=== PATIENT | male | born 1970 | race Caucasian/White ===

== ENCOUNTER 2018-01-01 01:04 | Emergency (ER) | payer SELFPAY ==
[~2018-01-01] VITALS: Ht 165.1 cm; Wt 68.0 kg
--- NOTE | 2018-01-01 01:25 | NUR ---
TO ROOM 4A FOR ER EVAL.PT STATES ALSO STARTED WITH HICCUPS
[2018-01-01] MEDS ORDERED: ONDANSETRON 4 MG/2 ML VIAL ONE ×2 (01:26→03:01)
[2018-01-01] MEDS ORDERED: ONDANSETRON 4 MG/2 ML VIAL IV ONE ×2 (01:45→03:15)
[2018-01-01] MEDS ORDERED: PANTOPRAZOLE SODIUM 40 MG VIAL IV ONE (01:45)
[2018-01-01] MEDS ORDERED: IV NORMAL SALINE 1000 ML BAG IV ONE ×3 (01:45→02:45)
[2018-01-01] MEDS ORDERED: PANTOPRAZOLE SODIUM 40 MG VIAL ONE (01:45)
[2018-01-01 01:56] LABS: BASOPHILS % (AUTO) 0.1 % (0.0-2.0); EOSINOPHILS % (AUTO) 0.1 % (0.0-7.0); HEMOGLOBIN 15.8 g/dL (12.5-16.3); LYMPHOCYTES # (AUTO) 1.5 K/uL (20.0-40.0); LYMPHOCYTES % (AUTO) 16.7 % (20.5-51.5); MEAN CORPUSCULAR HEMOGLOBIN 27.8 uug (23.8-33.4); MEAN CORPUSCULAR HGB CONC 34 g/dL (32.5-36.3); MEAN CORPUSCULAR VOLUME 81.1 fL (73.0-96.2); MONOCYTES # (AUTO) 0.5 K/uL (2.0-10.0); MONOCYTES % (AUTO) 5.7 % (0.0-11.0); NEUTROPHILS # (AUTO) 7.1 K/uL (1.8-8.9); NEUTROPHILS % (AUTO) 77.4 % (38.5-71.5); PLATELET COUNT (AUTO) 283 K/uL (152-348); RED BLOOD CELL COUNT(AUTO) 5.67 MIL/uL (4.06-5.63); WHITE BLOOD COUNT (AUTO) 9.2 K/uL (3.6-10.2)
[2018-01-01 02:12] LABS: BILIRUBIN,DIRECT 0.1 mg/dL (0.0-0.2); BILIRUBIN,TOTAL 0.4 mg/dL (0.2-1.0); POTASSIUM 3.8 mmol/L (3.5-5.1); TOTAL PROTEIN, SERUM 9.1 g/dL (6.4-8.2)
[2018-01-01 03:25] LABS: *BILIRUBIN,URIN NEGATIVE (NEGATIVE); *BLOOD, URINE NEGATIVE (NEGATIVE); *CLARITY,URINE CLEAR (CLEAR); *COLOR,URINE YELLOW (YELLOW); *KETONES,URINE NEGATIVE (NEGATIVE); *PROTEIN,URINE NEGATIVE (NEGATIVE); LEUKOCYTE ESTERASE ,URINE NEGATIVE (NEGATIVE); NITRITE, URINE NEGATIVE (NEGATIVE); UGLUCOSE NEGATIVE (NEGATIVE)
[2018-01-01 03:39] LABS: RBC,URINE 0-3 /HPF (0-3); SQUAMOUS EPITHELIAL CELL,UR FEW /HPF (NONE SEEN); WBC,URINE 0-3 /HPF (0-3)
[2018-01-01 03:40] LABS: BACTERIA,URINE NONE SEEN /HPF (NONE SEEN)
[2018-01-01] MEDS ORDERED: METOCLOPRAMIDE HCL 10 MG/2 ML VIAL ONE (04:35)
[2018-01-01] MEDS ORDERED: diphenhydrAMINE 50 MG/1 ML VIAL ONE (04:35)
[2018-01-01] MEDS ORDERED: METOCLOPRAMIDE HCL 10 MG/2 ML VIAL IV ONE (04:45)
[2018-01-01] MEDS ORDERED: diphenhydrAMINE 50 MG/1 ML VIAL IV ONE (04:45)
--- NOTE | 2018-01-01 05:07 | NUR ---
Patient discharged to home in stable conditon. Written and verbal after care instructions given. Patient verbalizes understanding of instructions.
== END 2018-01-01 05:09 | disposition home or self-care (01) ==
LOC: ER 01:08
DX: K29.70 Gastritis, unspecified, without bleeding (principal); E86.0 Dehydration; R11.10 Vomiting, unspecified; F17.200 Nicotine dependence, unspecified, uncomplicated
CPT/HCPCS: 36415; 83690; 85025; A4663; C9113; J1200; J2405; J2765; J7030